=== PATIENT | male | born 1955 | race African-American/Black ===

== ENCOUNTER → 2017-06-09 | Outpatient (CLI) | payer BC ==
[2016-01-05 15:00] VITALS: BP 146/89
[~2017-06-09] MED LIST: BYSTOLIC20 MG PO; BYSTOLIC5 MG PO; DESO15OI3 TP; IBUP-1027 PO; LIDO700A4 TP; OLME20TA19 PO; OXYC1TAB7 PO; Oxycodone Hcl/Acetaminophen PO; TRIA15CR3 TP
--- NOTE | 2017-06-09 12:20 | RAD ---
Chest, 2 views, 06/09/2017: History: Cough, chest pain Comparison is made to a study from 10/23/2015. The heart size and pulmonary vascularity are normal. There is tortuosity of the thoracic aorta. 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 These opacities appear unchanged. The left chest is clear. No pleural fluid is evident. IMPRESSION: 1. 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 2. No acute cardiopulmonary abnormality is detected.
== END | disposition home or self-care (01) ==
LOC: RAD 11:04
PROVIDERS: ATTEND Internal Medicine
DX: J98.4 Other disorders of lung (principal)
CPT/HCPCS: 71020